=== PATIENT | male | born 1975 | race Hispanic/Latino ===

== ENCOUNTER → 2019-05-17 | Outpatient (CLI) | payer MEDICARE | END | disposition home or self-care (01) | LOC: RAH 10:04 | PROVIDERS: ATTEND Internal Medicine | DX: K52.9 Noninfective gastroenteritis and colitis, unspecified (principal) | CPT/HCPCS: 76700 ==

== ENCOUNTER → 2020-05-31 | Outpatient (CLI) | payer MEDICARE ==
--- NOTE | 2020-05-31 11:30 | NUR ---
MBSS COMPLETED. PENETRATION WITH PUREED AND PUDDING TEXTURE. RECOMMEND MECHANICAL SOFT/GROUND, THIN LIQUIDS; PILLS WHOLE WITH FOOD. RESULTS AND RECOMMENDATIONS REVIEWED WITH Pt'S BROTHER. HE VERBALIZED UNDERSTANDING. TACK CUTTER ENCOURAGED BROTHER TO AVOID PUREES AND PUDDING TEXTURE Pt HAS A RISK OF FOOD GOING INTO [place]. HE VERBALIZED AGREEMENT. ALL QUESTIONS ANSWERED AT THIS TIME. Addendum: 05/31/20 at 1348 by VIANNEY MCCARTHY [facility] Amended: Links added.
== END | disposition home or self-care (01) ==
LOC: RAH 10:46
PROVIDERS: ATTEND Internal Medicine
DX: T17.320A Food in larynx causing asphyxiation, initial encounter (principal); R13.10 Dysphagia, unspecified
CPT/HCPCS: 74230; 92611

== ENCOUNTER → 2020-06-28 | Outpatient (CLI) | payer MEDICARE | END | disposition home or self-care (01) | LOC: RAH 08:33 | PROVIDERS: ATTEND Internal Medicine | DX: M47.812 Spondylosis without myelopathy or radiculopathy, cervical region (principal); M54.2 Cervicalgia | CPT/HCPCS: 72040 ==

== ENCOUNTER 2020-07-04 07:53 | Day surgery (SDC) | payer MEDICARE ==
[~2020-07-04] VITALS: Ht 142.2 cm; Wt 48.9 kg
[~2020-07-04 07:53] MED LIST: SODIUM CHLORIDE 0.9% 1000ML 1,000 ML IV ONE
[2020-07-04 08:00] VITALS: BP 105/72
[2020-07-04] MEDS ORDERED: CETI10TA57 PO (08:42)
[2020-07-04] MEDS ORDERED: MONT10TA96 PO (08:42)
[2020-07-04] MEDS ORDERED: PANT40TA54 PO (08:42)
[2020-07-04] MEDS ORDERED: PRAV40TA3 PO (08:42)
[2020-07-04] MEDS ORDERED: FLUTICASONE NASAL (08:42)
[2020-07-04] MEDS ORDERED: IPRATROPIUM NASAL (08:42)
[2020-07-04] MEDS ORDERED: LEVO5TAB13 PO (08:42)
[2020-07-04] MEDS ORDERED: OLOPATADINE NS (08:42)
[2020-07-04] MEDS ORDERED: PROPOFOL 10 MG/ML 20ML VIAL IV ONE (09:36)
[2020-07-04] MEDS ORDERED: GLYCOPYRROLATE 1 MG/5 ML SYRINGE ONE (09:47)
[2020-07-04 09:50] VITALS: BP 91/61
[2020-07-04 09:55] VITALS: BP 91/71
[2020-07-04 10:00] VITALS: BP 92/52
[2020-07-04 10:05] VITALS: BP 102/62
== END 2020-07-04 10:20 ==
LOC: ENDO 07:53 → DAH 07:53 → ENDO 10:20
PROVIDERS: ATTEND Internal Medicine Gastroenterology
DX: R13.10 Dysphagia, unspecified (principal); K29.70 Gastritis, unspecified, without bleeding; R12 Heartburn; E78.5 Hyperlipidemia, unspecified; K21.9 Gastro-esophageal reflux disease without esophagitis; Q90.9 Down syndrome, unspecified; F32.9 Major depressive disorder, single episode, unspecified; K31.89 Other diseases of stomach and duodenum; Z20.828 Contact with and (suspected) exposure to other viral communicable diseases
CPT/HCPCS: 43239; A4215 ×2; A4221; A4222; A4223; A4606; A4620; A4657; A4663; C9803; J2704; J3490; J7030; U0003

== ENCOUNTER → 2020-07-20 | Outpatient (CLI) | payer MEDICARE ==
[~2020-07-20] MED LIST changes: +CETI10TA57 PO; +FLUTICASONE NASAL; +IPRATROPIUM NASAL; +LEVO5TAB13 PO; +MONT10TA96 PO; +OLOPATADINE NS; +PANT40TA54 PO; +PRAV40TA3 PO; -SODIUM CHLORIDE 0.9% 1000ML 1,000 ML IV ONE
== END | disposition home or self-care (01) ==
LOC: RAH 08:15
PROVIDERS: ATTEND Internal Medicine
DX: J18.9 Pneumonia, unspecified organism (principal); R91.8 Other nonspecific abnormal finding of lung field; M41.84 Other forms of scoliosis, thoracic region
CPT/HCPCS: 71046

== ENCOUNTER 2021-12-12 17:13 | Inpatient (IN) | payer MEDICARE ==
[~2021-12-12] VITALS: Ht 142.2 cm; Wt 55.7 kg
[~2021-12-12 17:13] MED LIST changes: +MONT-39 PO; -MONT10TA96 PO
[2021-12-12 17:51] LABS: BASOPHILS % (AUTO) 0.2 % (0.0-5.0); EOSINOPHILS % (AUTO) 0.8 % (0.0-8.0); HEMATOCRIT 42.3 % (42-54); LYMPHOCYTES % (AUTO) 26.4 % (21.0-51.0); MEAN CORPUSCULAR HEMOGLOBIN 33.8 pg (27.0-33.0); MEAN CORPUSCULAR HGB CONC 33.6 g/dL (32.0-36.0); MEAN CORPUSCULAR VOLUME 100.7 fL (79-99); MONOCYTES % (AUTO) 7.5 % (3.0-13.0); NEUTROPHILS % (AUTO) 64.7 % (40.0-77.0); PLATELET COUNT (AUTO) 263 K/uL (130-400); RED CELL DISTRIBUTION WIDTH 13.4 % (11.0-15.5); WHITE BLOOD COUNT (AUTO) 10.3 K/uL (4.8-10.8)
[2021-12-12 17:59] LABS: POTASSIUM 3.8 mmol/L (3.5-5.1)
[2021-12-12] MEDS ORDERED: 0.9%NACL 1000ML 1,000 ML IV SCH (18:00)
[2021-12-12] MEDS ORDERED: ACETAMINOPHEN 500 MG TABLET PO ONE (18:00)
[2021-12-12] MEDS ORDERED: LORAZEPAM 2 MG/ML 1 ML VIAL IVP ONE (18:00)
[2021-12-12 18:04] LABS: ALBUMIN 2.9 g/dL (3.5-5.0); BILIRUBIN,TOTAL 0.4 mg/dL (0.2-1.0); TOTAL PROTEIN, SERUM 9.1 g/dL (6.0-8.3)
[2021-12-12 18:05] LABS: INR 1.01 (0.85-1.15)
[2021-12-12 18:06] LABS: PARTIAL THROMBOPLASTIN TIME 33.3 SEC (26.3-35.5)
[2021-12-12] MEDS ORDERED: ACETAMINOPHEN 650 MG/20.3 ML UDCUP PEG ONE (18:15)
[2021-12-12 18:48] LABS: APPEARANCE,URINE Clear (CLEAR); BILIRUBIN,URINE Negative (NEGATIVE); COLOR,URINE Yellow (YELLOW); GLUCOSE, URINE (UA) Negative (NEGATIVE); KETONES,URINE Negative (NEGATIVE); LEUKOCYTE ESTERASE ,URINE Negative (NEGATIVE); NITRATE,URINE Negative (NEGATIVE); OCCULT BLOOD,URINE Negative (NEGATIVE); PROTEIN,URINE Trace mg/dL (NEGATIVE); UROBILINOGEN,URINE 0.2 mg/dL (0.2-1.0)
[2021-12-12 18:56] LABS: BACTERIA,URINE Rare /HPF (None Seen); MUCUS,URINE Rare LPF (None Seen); RBC,URINE 0-1 /HPF (0-1); SQUAMOUS EPITHELIAL CELL,UR Rare /HPF (0-2); WBC,URINE 0-1 /HPF (0-1)
[2021-12-12] MEDS ORDERED: CEFTRIAXONE 1G VIAL ONE (18:59)
[2021-12-12] MEDS ORDERED: AZITHROMYCIN 500MG+NS 250ML 250 ML ONE (18:59)
[2021-12-12] MEDS ORDERED: CEFTRIAXONE 1G VIAL IVP ONE (19:00)
[2021-12-12] MEDS: AZITHROMYCIN 500MG+NS 250ML IVPB SCH ×2 (19:00→20:29)
[2021-12-12] MEDS ORDERED: ACETAMINOPHEN 325 MG TAB PO PRN (21:00)
[2021-12-12] MEDS ORDERED: ONDANSETRON 4MG INJ IVP PRN (21:00)
[2021-12-12] MEDS ORDERED: PHARMACY COMMUNICATION MISC SCH (21:00)
[2021-12-12] MEDS: 0.9%NACL 1000ML 1,000 ML IV SCH (22:02)
[2021-12-13] MEDS ORDERED: FOLI0.4T6 PO (00:29)
[2021-12-13 00:34] VITALS: BP 112/65
[2021-12-13] MEDS ORDERED: FLUT16H EN ×2 (00:35→11:00)
[2021-12-13] MEDS ORDERED: IPRA6S NASAL ×2 (00:35→11:02)
[2021-12-13] MEDS ORDERED: AZEL205. EN (00:35)
[2021-12-13 05:17] VITALS: BP 107/59
[2021-12-13] MEDS ORDERED: OLOP2.5D16 OP (08:49)
[2021-12-13] MEDS ORDERED: LACT-69 PO ×2 (08:49→11:02)
[2021-12-13] MEDS ORDERED: FAMOTIDINE 20MG VIAL IV ONE (09:00)
[2021-12-13] MEDS ORDERED: CEFTRIAXONE 1G VIAL IVP ONE (09:00)
[2021-12-13 09:10] VITALS: BP 94/66
[2021-12-13] MEDS: 0.9%NACL 1000ML 1,000 ML IV SCH ×3 (09:35→21:43)
[2021-12-13] MEDS ORDERED: FLUTICASONE PROPIONATE 50MCG/SPRAY 16 GM BOTTLE EN PRN (11:00)
[2021-12-13] MEDS ORDERED: DiphenhydrAMINE HCL 50 MG/ML VIAL IV PRN (11:30)
[2021-12-13] MEDS ORDERED: LIDOCAINE HCL-MPF 1% 2ML VIAL IV PRN ×2 (11:30)
[2021-12-13] MEDS ORDERED: KCL 20 MEQ ERTAB PO PRN (11:30)
[2021-12-13] MEDS ORDERED: POTASSIUM CHLORIDE 20MEQ/100ML 100 ML IV PRN (11:30)
[2021-12-13] MEDS ORDERED: POTASSIUM CHLORIDE 10% ELIXIR 20 MEQ/15 ML UDCUP PO PRN (11:30)
[2021-12-13] MEDS ORDERED: OLOPATADINE HCL OP PRN (11:30)
[2021-12-13] MEDS ORDERED: IPRATROPIUM 0.06% NASAL PRN (11:30)
[2021-12-13] MEDS ORDERED: AZELASTINE NASAL PRN (11:30)
[2021-12-13] MEDS ORDERED: DIPHENHYDRAMINE HCL 25 MG CAPSULE PO PRN (11:30)
[2021-12-13 11:39] VITALS: BP 104/61
[2021-12-13] MEDS ORDERED: PEG 3350/NA SULF,BICARB,CL/KCL 4000 ML SOLN PO STA ×2 (16:53→16:57)
[2021-12-13] MEDS ORDERED: 0.9% NACL 250ML 250 ML ONE (17:52)
[2021-12-13] MEDS: AZITHROMYCIN 500MG+NS 250ML IVPB SCH (18:34)
[2021-12-13] MEDS: CEFTRIAXONE 1G VIAL IVP SCH (18:35)
[2021-12-13] MEDS: HYDROCORTISONE 25 MG SUPPOSITORY PR SCH (18:38)
[2021-12-13 20:39] VITALS: BP 122/83
[2021-12-13] MEDS ORDERED: MONTELUKAST SODIUM 10 MG TAB PO SCH (21:00)
[2021-12-14] VITALS (16 sets, daily range): BP systolic 75–106; BP diastolic 49–84
[2021-12-14] MEDS: HYDROCORTISONE 25 MG SUPPOSITORY PR SCH ×4 (00:24→17:38)
[2021-12-14 04:16] LABS: HEMATOCRIT 35.7 % (42-54); MEAN CORPUSCULAR HEMOGLOBIN 33.8 pg (27.0-33.0); MEAN CORPUSCULAR HGB CONC 33.9 g/dL (32.0-36.0); MEAN CORPUSCULAR VOLUME 99.7 fL (79-99); RED BLOOD CELL COUNT(AUTO) 3.58 MIL/uL (4.50-6.20); RED CELL DISTRIBUTION WIDTH 13.2 % (11.0-15.5); WHITE BLOOD COUNT (AUTO) 6.9 K/uL (4.8-10.8)
[2021-12-14 04:25] LABS: CREATININE 0.7 mg/dL (0.5-1.5); POTASSIUM 3.1 mmol/L (3.5-5.1)
[2021-12-14] MEDS: POTASSIUM CHLORIDE 20MEQ/100ML 100 ML IV PRN ×2 (06:47→09:39)
[2021-12-14] MEDS ORDERED: FOLIC ACID 1 MG TABLET PO SCH (09:00)
[2021-12-14] MEDS ORDERED: PANTOPRAZOLE 40 MG TAB DR PO SCH (09:00)
[2021-12-14] MEDS: 0.9%NACL 1000ML 1,000 ML IV SCH (09:29)
[2021-12-14] MEDS ORDERED: PROPOFOL 10 MG/ML 20ML VIAL IV ONE (12:24)
[2021-12-14] MEDS ORDERED: LIDOCAINE PF 100MG/5ML (2%) SYRINGE 5ML ONE (12:25)
[2021-12-14] MEDS ORDERED: EPHEDRINE SULFATE 50 MG/ML AMPULE ONE (12:34)
[2021-12-14] MEDS ORDERED: 0.9% NACL 250ML 250 ML ONE (17:27)
[2021-12-14] MEDS: CEFTRIAXONE 1G VIAL IVP SCH (17:38)
[2021-12-14] MEDS: AZITHROMYCIN 500MG+NS 250ML IVPB SCH (17:38)
[2021-12-14] MEDS ORDERED: LEVO500T90 PO (17:39)
[2021-12-14] MEDS ORDERED: METR-172 PO (17:39)
== END 2021-12-14 20:25 | disposition home or self-care (01) | DRG 377 ==
LOC: EDH 17:13 → EDHIP 20:43 → OBSVTOIN 20:43 → 4DH 23:36
PROVIDERS: ADMIT Internal Medicine; ATTEND Internal Medicine
PROC: 0DJD8ZZ Inspection of Lower Intestinal Tract, Via Natural or Artificial Opening Endoscopic (ICD-10-PCS; principal; 2021-12-14)
DX: K92.1 Melena (principal); J18.9 Pneumonia, unspecified organism; D62 Acute posthemorrhagic anemia; K64.8 Other hemorrhoids; H91.90 Unspecified hearing loss, unspecified ear; I10 Essential (primary) hypertension; K21.9 Gastro-esophageal reflux disease without esophagitis; Z20.822 Contact with and (suspected) exposure to COVID-19; E78.00 Pure hypercholesterolemia, unspecified; L40.9 Psoriasis, unspecified; E78.2 Mixed hyperlipidemia; J30.9 Allergic rhinitis, unspecified; F79 Unspecified intellectual disabilities; E86.0 Dehydration; Z83.3 Family history of diabetes mellitus; Z82.5 Family history of asthma and other chronic lower respiratory diseases; Z82.3 Family history of stroke; Z82.49 Family history of ischemic heart disease and other diseases of the circulatory system; Q90.9 Down syndrome, unspecified
CPT/HCPCS: 36415; 45378; 71045; 74176; 80048; 80053; 81001; 82270; 85018; 85025; 85027; 85610; 85730; 86850; 86900; 86901; 87635; 87804; A4606; C9803; G0378; J0456; J0696; J2001; J2060; J2704; J3480; J3490; J7030; J7050

== ENCOUNTER → 2022-03-22 | Outpatient (CLI) | payer MEDICARE ==
[~2022-03-22] MED LIST changes: +AZEL205. EN; -CETI10TA57 PO; +FLUT16H EN; -FLUTICASONE NASAL; +FOLI0.4T6 PO; +IPRA6S NASAL; -IPRATROPIUM NASAL; +LACT-69 PO; +LEVO-70 PO; +METR-172 PO; +OLOP2.5D16 OP; -OLOPATADINE NS
== END | disposition home or self-care (01) ==
LOC: RAH 12:39
PROVIDERS: ATTEND Internal Medicine
DX: R91.8 Other nonspecific abnormal finding of lung field (principal); J47.9 Bronchiectasis, uncomplicated
CPT/HCPCS: 71250

== ENCOUNTER 2022-11-09 16:31 | Emergency (ER) | payer MEDICARE ==
[~2022-11-09] VITALS: Ht 149.9 cm; Wt 43.1 kg
[2022-11-09] MEDS ORDERED: LIDOP TP (23:11)
[2022-11-09] MEDS ORDERED: ACET-2079 PO (23:11)
[2022-11-09] MEDS ORDERED: IBUP-2070 PO (23:11)
[2022-11-09 23:19] VITALS: BP 119/72
[2022-11-09] MEDS ORDERED: LEVOFLOXACIN 500 MG TABLET PO SCH (23:30)
[2022-11-09] MEDS ORDERED: KETOROLAC 30MG VIAL (30MG/ML) IVP ONE (23:30)
== END 2022-11-09 23:32 | disposition home or self-care (01) ==
LOC: EDH 16:31
DX: S22.31XA Fracture of one rib, right side, initial encounter for closed fracture (principal); S27.321A Contusion of lung, unilateral, initial encounter; K21.9 Gastro-esophageal reflux disease without esophagitis; Z79.1 Long term (current) use of non-steroidal anti-inflammatories (NSAID); Z79.899 Other long term (current) drug therapy; W18.2XXA Fall in (into) shower or empty bathtub, initial encounter; Y93.89 Activity, other specified; Y92.89 Other specified places as the place of occurrence of the external cause; Y99.8 Other external cause status
CPT/HCPCS: 99284; 96374; 71101; J1885

== ENCOUNTER → 2024-03-17 | Outpatient (CLI) | payer MEDICARE ==
[~2024-03-17] MED LIST changes: +ACET-2079 PO; -AZEL205. EN; +AZEL205.2 EN; +IBUP-2070 PO; +LIDOP TP
== END | disposition home or self-care (01) ==
LOC: RAH 10:09
PROVIDERS: ATTEND Internal Medicine
DX: J90 Pleural effusion, not elsewhere classified (principal); J18.9 Pneumonia, unspecified organism; I51.7 Cardiomegaly; J20.9 Acute bronchitis, unspecified; R50.9 Fever, unspecified
CPT/HCPCS: 71045

== ENCOUNTER → 2024-05-05 | Outpatient (CLI) | payer MEDICARE | END | disposition home or self-care (01) | LOC: RAH 09:12 | PROVIDERS: ATTEND Internal Medicine Gastroenterology | DX: R13.12 Dysphagia, oropharyngeal phase (principal); R63.30 Feeding difficulties, unspecified | CPT/HCPCS: 74230; 92611 ==

== ENCOUNTER 2024-06-16 17:39 | Emergency (ER) | payer MEDICARE ==
[~2024-06-16] VITALS: Ht 142.2 cm; Wt 39.0 kg
--- NOTE | 2024-06-16 18:34 | ERN ---
ED Note History of Present Illness Stated Complaint: ABNORMAL CT SCAN Chief Complaint: Abnormal Labs Time Seen by MD: 17:42 Time Seen by Midlevel: 17:42 Dictation: The patient is a 48-year-old with a history of Down syndrome, hyperlipidemia, dysphagia who presents to the emergency department with brother due to an abnormal cardiac CT. Per patient's brother he was told he had fluid in his lungs. CT reviewed revealed 50% right pneumothorax. Patient denies any shortness of breath, cough, fevers. No complaints at this time. Per patient's brother patient had a swallows test done in April and was told he needed thic kened fluids. Denies any trauma. Allergies: Coded Allergies: fish oil (Unverified Allergy, Unknown, 11/09/22) Home Meds Active Scripts Lidocaine (Lidoderm Patch 5%) 1 Patch Patch, 1 PATCH TP DAILY for 5 Days, #5 ADH.PATCH Prov:STAR PULIDO 11/09/22 Ibuprofen (Ibuprofen) 600 Mg Tablet, 600 MG PO Q6H PRN for PAIN, #10 TAB Prov:STAR PULIDO 11/09/22 Acetaminophen with Codeine (Acetaminophen-Cod #3 Tablet) 1 Each Tablet, 1 TAB PO Q4H PRN for s22.39xa for 5 Days, #10 TAB Prov:STAR PULIDO 11/09/22 Metronidazole (Metronidazole) 500 Mg Tablet, 500 MG PO BID for 7 Days, #14 TAB Prov:OSVALDO MEJIA Jr., MD 12/14/21 Levofloxacin (Levofloxacin) 500 Mg Tablet, 500 MG PO DAILY for 7 Days, #7 TAB Prov:OSVALDO EMJIA Jr., MD 12/14/21 Lactose-Free Food (Ensure Liquid) 237 Ml Liquid, 237 ML PO TID PRN for CONSTIPATION, #270 CAN 1 Refill Prov:MELISA SHAVER MD 12/13/21 Ipratropium [place] (Atrovent 0.06% Nasal [place]) 42 Mcg/[place], 1 MCG NASAL TID PRN for NASAL CONGESTION, #30 SPRAY 1 Refill Prov:MELISA SHAVER MD 12/13/21 Fluticasone Propionate (Flonase Nasal [place]) 50 Mcg/[place], 2 SPRY EN QDP PRN for NASAL CONGESTION, #30 EA 1 Refill Prov:MELISA SHAVER MD 12/13/21 Olopatadine HCl (Olopatadine HCl) 2.5 Ml Drops, 1 DROP OP DAILY PRN for ITCHING, #9 ML Prov:MELISA SHAVER MD 12/13/21 Reported Medications Azelastine HCl (Azelastine HCl) 205.5 Mcg/0.137 Ml [place].pump, 2 SPRY EN BID PRN for allergies 12/13/21 Folic Acid (Folic Acid) 0.4 Mg Tablet, 1 MG PO DAILY, TAB 12/13/21 Pantoprazole Sodium (Pantoprazole Sodium) 40 Mg Tablet.dr, 40 MG PO AM, TAB 07/04/20 Levocetirizine Dihydrochloride (Levocetirizine Dihydrochloride) 5 Mg Tablet, 5 MG PO HS, TAB 07/04/20 Montelukast Sodium (Montelukast Sodium) 10 Mg Tablet, 10 MG PO PM, TAB 07/04/20 Pravastatin Sodium (Pravastatin Sodium) 40 Mg Tablet, 40 MG PO DAILY, TAB 07/04/20 Past Medical History Past Medical History: Other Additional Past Medical Hx: IDD, DOWN'S, DYSPHAGIA, PSORIAISIS,CELIAC DISEASE Surgical History: Other Surgical History Other: ENDOSCOPY Family History: Negative Social History: Negative RN Note Reviewed/Agreed w/PFSH: Yes Review of System Dictation Constitutional: Negative for fever,chills, and weight loss Eyes: Negative for injury, pain,redness, and discharge ENT: Negative for injury,pain or swelling Cardiovascular: Negative for chest pain, palpitations, and edema Respiratory: Negative for shortness of breath, cough, and wheezing, Abdomen/GI: Negative for abdominal pain, nausea, vomiting, diarrhea, and constipation Back: Negative for injury and pain : Negative for injury, bleeding and discharge MS/Extremity: Negative for injury and deformity Skin: Negative for rash, and discoloration Neuro: Negative for headache, weakness, numbness, tingling, and seizure Psych: Negative for suicide ideation, homicidal ideation, and hallucinations Initial Vital Sign VS Vital Signs Date Time Temp Pulse Resp B/P (MAP) Pulse Ox O2 Delivery O2 Flow Rate FiO2 06/16/24 17:42 97.5 74 16 104/54 100 Room Air 0 06/16/24 17:42 21 Physical Exam Dictation Vital Signs reviewed General Appearance: Alert, oriented x 1, no acute distress, well developed, nourished. Head and Face: non-traumatic. Eyes: PERRL, pink conjunctivas, eyelid no trauma, anterior chamber with arcus senilis. Ears: Pinnas intact and no signs of trauma or erythema ear canals clear and no discharge TM no erythema Nose: No discharge, no bleeding. Oropharynx: Mouth normal, tongue pink. pharynx clear,no erythema, tonsils no exudates, no abscesses noted, mucous membrane moist Neck: Supple, non-tender, no thyromegaly, no masses, no JVD, no bruits Breast:Deferred Chest:No tenderness, no crepitus, no paradoxical movement, no retractions Lungs:Clear, well-ventilated, symmetric, no rales, no wheezing, no rhonchi, no stridor, good breath sounds bilaterally Heart: Regular rate, regular rhythm, no murmur, no gallops Vascular: no peripheral edema, Abdomen: Soft, positive bowel sounds, nondistended, no guarding, nontender, no rebound, no masses no hepatomegaly, no splenomegaly, no Gomez's sign, no hernias. Rectal: Deferred Genital: Deferred Neurological: Normal speech, motor function intact, sensory function intact Musculoskeletal: Neck nontender, full range of motion, back nontender, full range of motion, Extremities: nontender, full range of motion Skin: Color pink, dry, no turgor, no rash, no lacerations, no abrasions, no contusions. Lymphatic: Deferred Results (Laboratory/Radiology) Laboratory/Radiology Laboratory Tests Test 06/16/24 18:52 White Blood Count 9.1 K/uL (4.8-10.8) Red Blood Count 3.74 MIL/uL (4.50-6.20) L Hemoglobin 12.6 g/dL (14.0-18.0) L Hematocrit 38.1 % (42-54) L Mean Corpuscular Volume 101.9 fL (79-99) H Mean Corpuscular Hemoglobin 33.7 pg (27.0-33.0) H Mean Corpuscular Hemoglobin Concent 33.1 g/dL (32.0-36.0) Red Cell Distribution Width 13.8 % (11.0-15.5) Platelet Count 162 K/uL (130-400) Mean Platelet Volume 11.3 fL (7.5-10.5) H Immature Granulocyte % (Auto) 0.2 % (0-1) Neutrophils (%) (Auto) 14.7 % (40.0-77.0) L Lymphocytes (%) (Auto) 77.1 % (21.0-51.0) H Monocytes (%) (Auto) 6.9 % (3.0-13.0) Eosinophils (%) (Auto) 0.7 % (0.0-8.0) Basophils (%) (Auto) 0.4 % (0.0-5.0) Neutrophils # (Auto) 1.3 K/uL (1.8-7.7) L Lymphocytes # (Auto) 7.0 K/uL (1.0-4.8) H Monocytes # (Auto) 0.6 K/uL (0.1-1.0) Eosinophils # (Auto) 0.06 K/uL (0.00-0.70) Basophils # (Auto) 0.04 K/uL (0.00-0.20) Absolute Immature Granulocyte (auto 0.02 K/uL (0-1) Nucleated Red Blood Cells 0.0 % (0.0-0.19) White Cell Morphology Comment See comments Prothrombin Time 11.4 SEC (9.6-11.6) Prothromb Time International Ratio 1.06 (0.85-1.15) Activated Partial Thromboplast Time 31.6 SEC (26.3-35.5) Sodium Level 137 mmol/L (136-145) Potassium Level 4.0 mmol/L (3.5-5.1) Chloride Level 104 mmol/L (101-111) Carbon Dioxide Level 32 mmol/L (21-32) Blood Urea Nitrogen 14 mg/dL (7-18) Creatinine 1.0 mg/dL (0.5-1.3) Glomerular Filtration Rate Calc 92 mL/min (>90) Random Glucose 77 mg/dL (70-105) Total Calcium 8.3 mg/dL (8.5-10.1) L Troponin I High Sensitivity 6 ng/L (4-75) CT chest without contrast: Moderate loculated posterior pneumothorax on the right. The pleura appears thickened and given posterior location this may be chronic. No Clearly identified fistula. No fluid within the pleural space. No evidence of tension. Labs Reviewed?: Yes EKG: (+) rhythm (Records), (+) SD (134) EKG Comment: EKG 06/16 ventricular rate 52, regular rate and rhythm, normal sinus rhythm, no STEMI. ED Course ED Course Orders Procedure Category Date Status Time Chest 1vw RAD 06/16/24 Taken 18:04 Cbc With Differential LAB 06/16/24 In Process 18:09 12 Lead Ekg Tracing- EKG 06/16/24 Complete Technical 18:09 Troponin I High LAB 06/16/24 Complete Sensitivity 18:09 Basic Metabolic Panel LAB 06/16/24 Complete 18:09 Pt And Ptt LAB 06/16/24 Complete 18:09 Ct Chest W/O Contrast CT 06/16/24 Taken 18:26 Vital Signs Date Time Temp Pulse Resp B/P (MAP) Pulse Ox O2 Delivery O2 Flow Rate FiO2 06/16/24 19:27 53 18 122/78 96 Room Air* 0 21 06/16/24 17:42 97.5 68 16 104/54 98 Room Air* 0 21 06/16/24 17:42 97.5 74 16 104/54 100 Room Air 0 Medical Decision Making MDM The patient is a 48-year-old with a history of Down syndrome, hyperlipidemia, dysphagia who presents to the emergency department with brother due to an abnormal cardiac CT. Per patient's brother he was told he had fluid in his lungs. CT reviewed revealed 50% right pneumothorax. Patient denies any shortness of breath, cough, fevers. No complaints at this time. Per patient's brother patient had a swallows test done in April and was told he needed thickened fluids. Denies any trauma. CBC showed no leukocytosis, microcytic anemia, chemistry showed a normal renal function, slight hypocalcemia, CT chest revealed moderate loculated posterior pneumothorax of the right with no tension. No more appears chronic. Dr. Wallace Review CT and spoke to cardiothoracic surgeon who states patient is ok to be discharge. spoke to patient pcp who states patient can be discharge and she will see him in the office. Patient continues in no distress, with no complaints. 02 saturations 96% on RA. Differential diagnosis: Pneumothorax, pneumonia, electrolyte imbalance, ACS Need for hospitalization: Patient does not meet criteria for hospitalization. There are no social concerns with this patient. DX & DISP Disposition: Discharge Departure Impression: Primary Impression: Pneumothorax on right Additional Impressions: Pneumothorax, chronic, Loculated pneumothorax of lateral aspect of right lung Condition: Stable Additional Instructions: Please follow up with primary doctor in 1-2 days. Please return to ER if symptoms worsen FOLLOW-UP WITH PRIMARY CARE PROVIDER IN 1 TO 2 DAYS. TAKE MEDICATIONS DIRECTED HERE IN THE EMERGENCY ROOM. OKAY TO CONTINUE HOME MEDICATIONS UNLESS OTHERWISE DISCUSSED DURING YOUR VISIT IN THE EMERGENCY ROOM TODAY. RETURN TO YOUR NEAREST EMERGENCY ROOM IF SYMPTOMS WORSEN OR IF THERE IS NO IMPROVEMENT. CALL 911 IF YOU NEED IMMEDIATE ASSISTANCE. TAKE TYLENOL OR MOTRIN [id number] NEEDED AND IF NO CONTRAINDICATIONS ARE PRESENT. INCREASE ORAL HYDRATION. A WOUND CULTURE OR URINE CULTURE WAS ORDERED HERE IN THE EMERGENCY ROOM DEPARTMENT PLEASE FOLLOW-UP WITH PRIMARY CARE PROVIDER AND ADVISE THEM TO GET REPEAT PORTS FROM OUR FACILITY. IF YOU HAD ANY GAYLE WRAP/SPLINTS THAT WERE APPLIED HERE, PLEASE DO NOT REMOVE THEM UNTIL YOU SEE YOUR PRIMARY CARE OR SPECIALTY. Referrals: MELISA SHAVER MD (PCP) Time of Disposition: 20:33 I have examined patient, & reviewed all documents, & agreed W/ the Diagnosis, and Plan CARMEN GARIBAY Jun 16, 2024 18:33
--- NOTE | 2024-06-16 19:07 | EKG ---
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
[2024-06-16 19:11] LABS: BASOPHILS # (AUTO) 0.04 K/uL (0.00-0.20); BASOPHILS % (AUTO) 0.4 % (0.0-5.0); EOSINOPHILS # (AUTO) 0.06 K/uL (0.00-0.70); EOSINOPHILS % (AUTO) 0.7 % (0.0-8.0); HEMATOCRIT 38.1 % (42-54); IMMATURE GRANULOCYTE ABSOLUTE 0.02 K/uL (0-1); LYMPHOCYTES % (AUTO) 77.1 % (21.0-51.0); MEAN CORPUSCULAR HEMOGLOBIN 33.7 pg (27.0-33.0); MEAN CORPUSCULAR HGB CONC 33.1 g/dL (32.0-36.0); MEAN CORPUSCULAR VOLUME 101.9 fL (79-99); MONOCYTES # (AUTO) 0.6 K/uL (0.1-1.0); MONOCYTES % (AUTO) 6.9 % (3.0-13.0); NEUTROPHILS # (AUTO) 1.3 K/uL (1.8-7.7); NEUTROPHILS % (AUTO) 14.7 % (40.0-77.0); PLATELET COUNT (AUTO) 162 K/uL (130-400); RED BLOOD CELL COUNT(AUTO) 3.74 MIL/uL (4.50-6.20); RED CELL DISTRIBUTION WIDTH 13.8 % (11.0-15.5); WHITE BLOOD COUNT (AUTO) 9.1 K/uL (4.8-10.8)
[2024-06-16 19:25] LABS: INR 1.06 (0.85-1.15); PROTHROMBIN TIME 11.4 SEC (9.6-11.6)
[2024-06-16 19:56] LABS: PARTIAL THROMBOPLASTIN TIME 31.6 SEC (26.3-35.5)
[2024-06-16 21:05] VITALS: BP 100/73; PULSE 56; RESP 12; TEMP 97.6; O2SAT 100
--- NOTE | 2024-06-16 21:07 | HMCIMG ---
CT CHEST W/O CONTRAST CLINICAL HISTORY: possible right pneumothorax COMPARISON: 03/22/2022 TECHNIQUE: Multiple sequential axial images of the chest were obtained from the thoracic inlet through upper abdomen. CT was performed with one or more of the following dose reduction techniques: automated exposure control, adjustment of the mA and/or kV according to patient size, or use of iterative reconstruction technique FINDINGS: There is a large right pneumothorax but it is not dependently positioned and situated posteriorly. The right parietal pleura appears thickened. There is atelectatic changes of the right lung. The left lung appears unremarkable. There is mild calcified coronary disease. Mediastinum appears free of pathologic size lymph nodes. The visualized abdominal viscera is unremarkable for acute findings. There is stable appearing bony structures. IMPRESSION: Large right pneumothorax which does not appear to extend and with thickened visceral pleura.
--- NOTE | 2024-06-16 21:22 | HMCIMG ---
CHEST 1VW CLINICAL HISTORY: sob COMPARISON: 03/17/2024 TECHNIQUE: Single view of the chest was obtained. FINDINGS: There is interval improvement in the right lung airspace disease but persistent hemithorax volume loss and mediastinal deviation from right to left. There is either scarring or infiltrate in the right lung. The cardiac size and mediastinum are unremarkable. The bony structures stable. IMPRESSION: Likely scarring less likely infiltrates in the right lung with persistent mediastinal deviation right to left due to right hemithorax volume loss.
== END 2024-06-16 21:10 | disposition home or self-care (01) ==
LOC: EDH 17:39
DX: J93.9 Pneumothorax, unspecified (principal); Z79.899 Other long term (current) drug therapy
CPT/HCPCS: 36415; 71045; 71250; 80048; 84484; 85025; 85610; 85730; 93005; 99285

== ENCOUNTER → 2025-02-28 | Outpatient (CLI) | payer MEDICARE ==
[~2025-02-28] MED LIST changes: -PRAV40TA3 PO; +PRAV40TA62 PO
--- NOTE | 2025-03-01 03:24 | HMCIMG ---
EXAM: CR Abdomen, 1 view. CLINICAL HISTORY: Irritable bowel syndrome with constipation. COMPARISON: None provided. FINDINGS: Nonobstructed nonspecific bowel gas pattern. A component of moderate constipation is present in the colon. No free air is evident. No abnormal calcification. No aggressive appearing osseous lesion. IMPRESSION: No acute process. A component of moderate constipation is present in the colon. /[place]
== END | disposition home or self-care (01) ==
LOC: RAH 16:04
PROVIDERS: ATTEND Internal Medicine
DX: K58.1 Irritable bowel syndrome with constipation (principal); R14.0 Abdominal distension (gaseous)
CPT/HCPCS: 74018